=== PATIENT | male | born 1980 | race Caucasian/White ===

== ENCOUNTER 2018-11-08 18:16 | Emergency (ER) | payer MEDICAID, SELFPAY ==
[2018-11-08 18:17] VITALS: BP 122/70; PULSE 88; RESP 14; TEMP 36.7; O2SAT 97; BMI 19.8
--- NOTE | 2018-11-08 18:20 | NURSING ---
NO OLD EKGS
[2018-11-08 19:25] VITALS: BP 126/76; PULSE 78; RESP 16; O2SAT 100
--- NOTE | 2018-11-08 19:45 | EKG12_ITS ---
Test Reason : CP Blood Pressure : / mmHG Vent. Rate : 086 BPM Atrial Rate : 086 BPM P-R Int : 116 ms QRS Dur : 086 ms QT Int : 354 ms P-R-T Axes : 057 045 034 degrees QTc Int : 423 ms Normal sinus rhythm with sinus arrhythmia Normal ECG Confirmed by AKIRA BENSON, AILEEN ([id number]), assignment desk editor CLARY BORGES ([id number] on 11/11/2018 11:44:20 AM Referred By: Confirmed By:JUANITA CHAMPION MD
[2018-11-08 19:46] VITALS: O2SAT 100
--- NOTE | 2018-11-08 19:50 | RAD_ITS ---
STUDY: X-RAY CHEST REASON FOR EXAM: Male, 38 years old. Cough and chest pain. TECHNIQUE: Single AP portable view of the chest. COMPARISON: None. FINDINGS: The lungs are clear and expanded. There is no demonstrated pleural abnormality. Normal size heart. Normal mediastinum and susana. Normal visualized pulmonary arteries. Normal visualized aortic arch and descending thoracic aorta. Normal visualized thoracic spine. Normal visualized ribs, clavicles, and shoulders. There is no demonstrated abnormality of the visualized soft tissue structures of the upper abdomen. RAD/Chest 1 View (Portable) IMPRESSION: Normal x-ray examination of the chest. Electronically Signed: John Díaz MD at 20:22 EDT , Service support ,
[2018-11-08 19:55] LABS: Absolute Lymphocyte Count 1.52 X10^3/uL (0.83-4.51); Absolute Neutrophil Count 12.2 X10^3/uL (2.0-7.7); Basophil# 0.03 X10^3/uL; Basophil% 0.2 % (0-1); Eosinophil# 0.09 X10^3/uL; Eosinophils% 0.6 % (0-5); Hematocrit 39.3 % (40-54); Hemoglobin 13.2 g/dL (13.0-16.5); Lymphocyte # 1.52 X10^3/ul (4.0); Lymphocyte % 10.1 % (19-41); Mean Corp Hgb Conc 33.6 g/dL (32-36); Mean Corpuscular Hgb 32.4 pg (27.0-32.0); Mean Corpuscular Volume 96.3 fL (80-94); Mean Platelet Vol. 9.2 fl (6.2-12.0); Monocyte# 1.15 X10^3/uL; Monocyte% 7.6 % (0-10); NRBC Flagged by Analyzer 0 % (0-5); Neutrophil % 81.2 % (47-70); Platelet Count 300 K/mm3 (150-450); RBC Distribution Width CV 11.5 % (11.6-14.6); RBC Distribution Width SD 40.7 fl (35.1-43.9); Red Blood Count 4.08 M/mm3 (4.6-6.2)
[2018-11-08] MEDS: Aspirin 81 MG TAB.CHEW 324 MG PO (20:03)
[2018-11-08 20:10] LABS: Anion Gap 3 (5-15); BUN 11 mg/dL (7-18); BUN/Creat Ratio 18.3 RATIO (10-20); Chloride 105 mmol/L (98-107); EST Glomerular Filtration Rate 160 mL/min (>60); Est Glom Filt Rate - Afr Amer 193 mL/min (>60); Glucose 90 mg/dL (74-106); Potassium 4.3 mmol/L (3.5-5.1); Sodium Level 138 mmol/L (136-145)
[2018-11-08 20:11] VITALS: BP 132/73; PULSE 79; RESP 16; TEMP 37.5; O2SAT 98
[2018-11-08 20:12] LABS: D-Dimer Quantitative (DVT/PE) < 0.27 FEU/ug/m (0.27-0.49)
[2018-11-08 21:00] VITALS: BP 160/69; PULSE 89; RESP 18; O2SAT 96
--- NOTE | 2018-11-08 22:16 | ED.VISSUMM ---
- ER Visit Summary Date of Service: 11/08/18 Chief Complaint: Chest pain History of Present Illness: The patient is a 38 M presenting with chest pain. Patient states this started last Saturday. He states he has had constant pain in his left upper lateral chest. It is worsened with movement and with cough. He states that at the beginning of the month he went camping and has had a cough since sleeping outside. He denies fever. Denies PE/DVT risk factors. He is a previous smoker. Denies CAD risk factors. Denies other complaints. Physical Examination: Vitals are stable. Patient is afebrile. Alert no acute distress. HEENT exam is unremarkable. Neck is supple. Lungs are clear and equal bilaterally. Left upper lateral chest tenderness to palpation with no crepitus Heart is regular rate and rhythm. Abdomen is soft nontender nondistended. Extremities are unremarkable. Skin is warm and dry. No focal neurologic deficit. Remainder of exam is unremarkable. Emergency Department Course and Treatment: EKG is sinus rhythm rate of 86 with no acute ischemic changes. Chest x-ray shows no acute process. CBC, chemistries unremarkable other than white count 15.0. D-dimer negative. Troponin is negative. Patient states he has had constant pain for several days that is worsened with movement and with cough. He is given prescription for Tessalon Perles and Naprosyn. Advised to follow-up with his primary care physician. Advised to return to ED if worsening complaints. Disposition: Discharge home Impression: Chest wall pain, bronchitis This note was generated with [employer] dictation software. It may contain incorrect words, spelling, and punctuation that were not noted in review of the chart prior to signing ED Disposition - Plan for ED Patient: Referrals: Oh Sung MD [Primary Care Provider] -
--- NOTE | 2018-11-08 22:20 | ED.DEP ---
ED Disposition - Plan for ED Patient: Instructions: Chest Wall Strain, Acute Bronchitis Prescriptions: Naproxen [Naprosyn] 500 mg PO BID PRN #20 tablet Benzonatate [Tessalon Perle] 200 mg PO TID PRN PRN #20 capsule PRN Reason: Cough Referrals: Oh Sung MD [Primary Care Provider] -
[2018-11-08 22:28] VITALS: BP 124/73; PULSE 72; RESP 14; O2SAT 96
[2018-11-08] MEDS: Naproxen 500 MG Tablet PO (22:31)
== END 2018-11-08 22:34 | disposition home or self-care (01) ==
LOC: ED 19:56
PROVIDERS: Emergency Provider Emergency Medicine; Family Provider Family Medicine; PCP Family Medicine
DX: J40 Bronchitis, not specified as acute or chronic (principal); Z87.891 Personal history of nicotine dependence
CPT/HCPCS: 71045; 80048; 84484; 85025; 85379; 93005; 99285; A4216